=== PATIENT | female | born 1950 | race Caucasian/White ===

== ENCOUNTER → 2018-01-28 | Outpatient (CLI) | payer BC | END | disposition home or self-care (01) | LOC: RAD 12:37 | DX: I70.90 Unspecified atherosclerosis (principal); R05 Cough | CPT/HCPCS: 71046 ==

== ENCOUNTER → 2018-12-06 | Outpatient (CLI) | payer BC ==
[2018-12-06 10:37] LABS: ADD UMIC YES; UR ASCORBIC ACID NEGATIVE (NEGATIVE); UR BACTERIA FEW /HPF (NONE SEEN); UR BILIRUBIN (Dip) NEGATIVE (NEGATIVE); UR BLOOD (Dip) NEGATIVE (NEGATIVE); UR CLARITY CLEAR (CLEAR); UR COLOR STRAW (YELLOW); UR GLUCOSE (Dip) NEGATIVE (NEGATIVE); UR KETONES (Dip) NEGATIVE (NEGATIVE); UR LEUKOCYTE ESTERASE (Dip) NEGATIVE Leu/ul (NEGATIVE); UR NITRITE (Dip) NEGATIVE (NEGATIVE); UR RBC 0 /HPF (0-5); UR SPECIFIC GRAVITY (Dip) 1.008 (1.003-1.030); UR TOTAL PROTEIN (Dip) 2+ mg/dl (NEGATIVE); UR UROBILINOGEN (Dip) NEGATIVE (NEGATIVE); UR WBC 0 /HPF (0-5)
[2018-12-06 10:43] LABS: CREATINE KINASE 162 IU/L (23-200)
[2018-12-06 10:56] LABS: CK INDEX 1.5; CK-MB 2.41 ng/ml (0.0-2.4); TROPONIN-I < 0.012 ng/ml (0.000-0.120)
[2018-12-09 17:46] LABS: CREATININE, RANDOM URINE 34 mg/dL (20-275); MICROALBUMIN 116.1 mg/dL; MICROALBUMIN/CREATININE RATIO 3415 (<30)
== END | disposition home or self-care (01) ==
LOC: LAB 09:48
DX: I10 Essential (primary) hypertension (principal); E11.8 Type 2 diabetes mellitus with unspecified complications; E78.00 Pure hypercholesterolemia, unspecified; K27.9 Peptic ulcer, site unspecified, unspecified as acute or chronic, without hemorrhage or perforation; M79.10 Myalgia, unspecified site
CPT/HCPCS: 81001; 82043; 82550; 82553; 84484; 93005

== ENCOUNTER → 2018-12-31 | Outpatient (CLI) | payer BC ==
[2018-12-31 16:37] LABS: ANION GAP 5 (5-13); BLOOD UREA NITROGEN 31 mg/dl (7-20); CALCIUM 9.3 mg/dl (8.4-10.2); CARBON DIOXIDE 29 mmol/L (21-31); CHLORIDE 104 mmol/L (97-110); CREATININE 1.38 mg/dl (0.44-1.00); Estimated GFR 38 mL/min (>60); GLUCOSE 170 mg/dl (70-220); POTASSIUM 5.5 mmol/L (3.5-5.1); SODIUM 138 mmol/L (135-144)
== END | disposition home or self-care (01) ==
LOC: LAB 15:48
DX: N18.9 Chronic kidney disease, unspecified (principal)
CPT/HCPCS: 80048

== ENCOUNTER 2019-01-24 09:22 | Day surgery (SDC) | payer BC ==
[2019-01-24 10:10] LABS: ADD MAN DIFF? NO
[2019-01-24 10:16] LABS: WHITE BLOOD COUNT 7.2 10^3/ul (4.8-10.8)
[2019-01-24 10:16] LABS: BASOPHILS % 0.3 % (0.0-2.0); EOSINOPHILS # 0.1 10^3/ul (0.0-0.5); EOSINOPHILS % 1.4 % (0.0-7.0); HEMOGLOBIN 11.2 g/dl (12.0-16.0); LYMPHOCYTES # 1.5 10^3/ul (0.8-2.9); LYMPHOCYTES % 20.1 % (15.0-51.0); MEAN CORPUSCULAR HEMOGLOBIN 27.5 pg (29.0-33.0); MONOCYTE # 0.6 10^3/ul (0.3-0.9); MONOCYTES % 7.6 % (0.0-11.0); NEUTROPHIL # 5.1 10^3/ul (1.6-7.5); NEUTROPHILS % 70.3 % (39.0-77.0); PLATELET COUNT 236 10^3/UL (140-415); RED BLOOD COUNT 4.07 10^6/ul (4.20-5.40)
[2019-01-24 10:34] LABS: ANION GAP 9 (5-13); CALCIUM 9.7 mg/dl (8.4-10.2); CARBON DIOXIDE 27 mmol/L (21-31); CHLORIDE 102 mmol/L (97-110); GLUCOSE 155 mg/dl (70-220); INR 0.85; POTASSIUM 4.9 mmol/L (3.5-5.1); PROTIME 11.7 Sec (11.9-14.9); PT RATIO 0.9; SODIUM 138 mmol/L (135-144)
[2019-01-24 10:35] LABS: PARTIAL THROMBOPLASTIN TIME 32.7 Sec (23.0-35.0)
[2019-01-24 10:45] LABS: BLOOD UREA NITROGEN 34 mg/dl (7-20); CREATININE 1.49 mg/dl (0.44-1.00); Estimated GFR 35 mL/min (>60)
[2019-01-24 10:49] LABS: ADD UMIC YES; UR ASCORBIC ACID NEGATIVE (NEGATIVE); UR BILIRUBIN (Dip) NEGATIVE (NEGATIVE); UR BLOOD (Dip) NEGATIVE (NEGATIVE); UR CLARITY CLEAR (CLEAR); UR COLOR STRAW (YELLOW); UR GLUCOSE (Dip) 1+ mg/dL (NEGATIVE); UR KETONES (Dip) NEGATIVE (NEGATIVE); UR LEUKOCYTE ESTERASE (Dip) NEGATIVE Leu/ul (NEGATIVE); UR NITRITE (Dip) NEGATIVE (NEGATIVE); UR RBC 0 /HPF (0-5); UR TOTAL PROTEIN (Dip) 2+ mg/dl (NEGATIVE); UR UROBILINOGEN (Dip) NEGATIVE (NEGATIVE); UR WBC 1 /HPF (0-5)
[2019-01-24] MEDS ORDERED: MIDAZOLAM 1 MG/ML 2 ML INJ (11:27)
[2019-01-24] MEDS ORDERED: LIDOCAINE 1% (MDV) 20 ML INJ (11:27)
[2019-01-24] MEDS ORDERED: FENTAnyl 50 MCG/ML VIAL (11:27)
[2019-01-24] MEDS ORDERED: HEPARIN 1000 UNITS/ML 10 ML INJ (11:36)
[2019-01-24] MEDS ORDERED: SOD CHLORIDE 0.9% 500 ML (11:36)
[2019-01-24] MEDS ORDERED: CLOPIDOGREL 300 MG TAB (12:08)
[2019-01-24] MEDS ORDERED: CLOPIDOGREL 75 MG TAB PO (12:30)
[2019-01-24] MEDS: LACTATED RINGER'S 1,000 ML IV (13:41)
== END 2019-01-24 16:30 | disposition home or self-care (01) ==
LOC: SDS 09:22
DX: I70.301 Unspecified atherosclerosis of unspecified type of bypass graft(s) of the extremities, right leg (principal); I73.9 Peripheral vascular disease, unspecified; I10 Essential (primary) hypertension; E11.9 Type 2 diabetes mellitus without complications
CPT/HCPCS: 37224; 71045; 75630; 80048; 81001; 82962; 85025; 85610; 85730; 93005

== ENCOUNTER → 2019-05-02 | Outpatient (CLI) | payer BC ==
[2019-05-02 09:59] LABS: ADD MAN DIFF? NO
[2019-05-02 10:02] LABS: BASOPHILS % 0.4 % (0.0-2.0); EOSINOPHILS # 0.2 10^3/ul (0.0-0.5); EOSINOPHILS % 2.3 % (0.0-7.0); HEMATOCRIT 35.3 % (37.0-47.0); HEMOGLOBIN 11.5 g/dl (12.0-16.0); LYMPHOCYTES # 1.7 10^3/ul (0.8-2.9); LYMPHOCYTES % 23.4 % (15.0-51.0); MEAN CORPUSCULAR HEMOGLOBIN 27.4 pg (29.0-33.0); MEAN CORPUSCULAR HGB CONC 32.6 g/dl (32.0-37.0); MEAN CORPUSCULAR VOLUME 84.2 fl (82.0-101.0); MEAN PLATELET VOLUME 10.1 fl (7.4-10.4); MONOCYTE # 0.5 10^3/ul (0.3-0.9); MONOCYTES % 7.3 % (0.0-11.0); NEUTROPHIL # 4.8 10^3/ul (1.6-7.5); NEUTROPHILS % 66.2 % (39.0-77.0); PLATELET COUNT 270 10^3/UL (140-415); RED BLOOD COUNT 4.19 10^6/ul (4.20-5.40); RED CELL DISTRIBUTION WIDTH 13.9 % (11.5-14.5)
[2019-05-02 10:02] LABS: WHITE BLOOD COUNT 7.3 10^3/ul (4.8-10.8)
[2019-05-02 10:17] LABS: HEMOGLOBIN A1C 6.9 % (0-5.9)
[2019-05-02 10:19] LABS: ALANINE AMINOTRANSFERASE 13 IU/L (13-69); ALBUMIN 4.4 g/dl (3.3-4.9); ALBUMIN/GLOBULIN RATIO 1.41; ALKALINE PHOSPHATASE 103 IU/L (42-121); ANION GAP 13 (5-13); ASPARTATE AMINO TRANSFERASE 22 IU/L (15-46); BILIRUBIN,INDIRECT 0.3 mg/dl (0-1.1); BILIRUBIN,TOTAL 0.3 mg/dl (0.2-1.3); BLOOD UREA NITROGEN 28 mg/dl (7-20); CALCIUM 9.8 mg/dl (8.4-10.2); CARBON DIOXIDE 26 mmol/L (21-31); CHLORIDE 104 mmol/L (97-110); CHOL/HDL RATIO 3.8 RATIO; CHOLESTEROL 158 mg/dl (100-200); CREATININE 1.69 mg/dl (0.44-1.00); Estimated GFR 30 mL/min (>60); GLUCOSE 147 mg/dl (70-220); HDL CHOLESTEROL 41 mg/dl (35-98); LDL CHOLESTEROL,CALCULATED 67 mg/dl; POTASSIUM 5.6 mmol/L (3.5-5.1); SODIUM 143 mmol/L (135-144); TOTAL PROTEIN 7.5 g/dl (6.1-8.1); TRIGLYCERIDES 252 mg/dl (0-149)
== END | disposition home or self-care (01) ==
LOC: LAB 09:34
DX: I10 Essential (primary) hypertension (principal); E11.9 Type 2 diabetes mellitus without complications; E78.00 Pure hypercholesterolemia, unspecified
CPT/HCPCS: 80053; 80061; 83036; 84443; 85025

== ENCOUNTER → 2019-07-10 | Outpatient (CLI) | payer BC ==
[2019-07-10 10:03] LABS: ADD MAN DIFF? NO
[2019-07-10 10:12] LABS: WHITE BLOOD COUNT 7.7 10^3/ul (4.8-10.8)
[2019-07-10 10:12] LABS: BASOPHILS % 0.5 % (0.0-2.0); EOSINOPHILS # 0.2 10^3/ul (0.0-0.5); EOSINOPHILS % 2.2 % (0.0-7.0); HEMATOCRIT 32.6 % (37.0-47.0); HEMOGLOBIN 10.5 g/dl (12.0-16.0); LYMPHOCYTES % 25.5 % (15.0-51.0); MEAN CORPUSCULAR HEMOGLOBIN 28.1 pg (29.0-33.0); MEAN CORPUSCULAR HGB CONC 32.2 g/dl (32.0-37.0); MEAN CORPUSCULAR VOLUME 87.2 fl (82.0-101.0); MEAN PLATELET VOLUME 10.3 fl (7.4-10.4); MONOCYTE # 0.6 10^3/ul (0.3-0.9); MONOCYTES % 7.8 % (0.0-11.0); NEUTROPHIL # 4.9 10^3/ul (1.6-7.5); NEUTROPHILS % 63.6 % (39.0-77.0); PLATELET COUNT 242 10^3/UL (140-415); RED BLOOD COUNT 3.74 10^6/ul (4.20-5.40); RED CELL DISTRIBUTION WIDTH 14.6 % (11.5-14.5)
[2019-07-10 10:32] LABS: HEMOGLOBIN A1C 6.9 % (0-5.9)
[2019-07-10 10:32] LABS: INR 0.85; PROTIME 11.7 Sec (11.9-14.9); PT RATIO 0.9
[2019-07-10 10:33] LABS: PARTIAL THROMBOPLASTIN TIME 31.5 Sec (23.0-35.0)
[2019-07-10 10:34] LABS: ADD UMIC YES; ALANINE AMINOTRANSFERASE 28 IU/L (13-69); ALBUMIN 4.4 g/dl (3.3-4.9); ALBUMIN/GLOBULIN RATIO 1.41; ALKALINE PHOSPHATASE 95 IU/L (42-121); ANION GAP 9 (5-13); ASPARTATE AMINO TRANSFERASE 29 IU/L (15-46); BILIRUBIN,INDIRECT 0.3 mg/dl (0-1.1); BILIRUBIN,TOTAL 0.3 mg/dl (0.2-1.3); BLOOD UREA NITROGEN 32 mg/dl (7-20); CALCIUM 9.5 mg/dl (8.4-10.2); CARBON DIOXIDE 25 mmol/L (21-31); CHLORIDE 104 mmol/L (97-110); CREATININE 1.72 mg/dl (0.44-1.00); Estimated GFR 30 mL/min (>60); GLUCOSE 152 mg/dl (70-220); SODIUM 138 mmol/L (135-144); TOTAL PROTEIN 7.5 g/dl (6.1-8.1); UR ASCORBIC ACID NEGATIVE (NEGATIVE); UR BACTERIA FEW /HPF (NONE SEEN); UR BILIRUBIN (Dip) NEGATIVE (NEGATIVE); UR BLOOD (Dip) NEGATIVE (NEGATIVE); UR CLARITY CLEAR (CLEAR); UR COLOR STRAW (YELLOW); UR GLUCOSE (Dip) NEGATIVE (NEGATIVE); UR KETONES (Dip) NEGATIVE (NEGATIVE); UR LEUKOCYTE ESTERASE (Dip) NEGATIVE Leu/ul (NEGATIVE); UR NITRITE (Dip) NEGATIVE (NEGATIVE); UR RBC 0 /HPF (0-5); UR SPECIFIC GRAVITY (Dip) 1.007 (1.003-1.030); UR TOTAL PROTEIN (Dip) 3+ mg/dl (NEGATIVE); UR UROBILINOGEN (Dip) NEGATIVE (NEGATIVE); UR WBC 1 /HPF (0-5)
[2019-07-10 10:38] LABS: POTASSIUM 5.2 mmol/L (3.5-5.1)
== END | disposition home or self-care (01) ==
LOC: LAB 09:45
DX: Z01.818 Encounter for other preprocedural examination (principal); E11.22 Type 2 diabetes mellitus with diabetic chronic kidney disease; I12.9 Hypertensive chronic kidney disease with stage 1 through stage 4 chronic kidney disease, or unspecified chronic kidney disease; N18.9 Chronic kidney disease, unspecified; I73.9 Peripheral vascular disease, unspecified
CPT/HCPCS: 71046; 80053; 81001; 83036; 85025; 85610; 85730; 87086; 93005

== ENCOUNTER 2019-07-16 06:05 | Day surgery (SDC) | payer BC ==
[2019-07-16] MEDS: ACETAMINOPHEN 500 MG TAB PO (06:57)
[2019-07-16 07:26] LABS: ANION GAP 10 (5-13); CALCIUM 9.5 mg/dl (8.4-10.2); CARBON DIOXIDE 24 mmol/L (21-31); CHLORIDE 106 mmol/L (97-110); Estimated GFR 28 mL/min (>60); GLUCOSE 158 mg/dl (70-220); POTASSIUM 4.9 mmol/L (3.5-5.1); SODIUM 140 mmol/L (135-144)
[2019-07-16] MEDS ORDERED: ONDANSETRON 4 MG INJ IV (07:30)
[2019-07-16] MEDS ORDERED: LABETALOL HCL 20MG INJ IV (07:30)
[2019-07-16] MEDS ORDERED: ALBUTEROL 0.083% (NEB) 2.5 MG/3 ML AMP HHN (07:30)
[2019-07-16] MEDS ORDERED: KETOROLAC 15 MG INJ IV (07:30)
[2019-07-16] MEDS ORDERED: HYDROmorphONE 1 MG/5 ML IV SYRINGE IV ×3 (07:30)
[2019-07-16] MEDS ORDERED: DIPHENHYDRAMINE 50 MG INJ IV (07:30)
[2019-07-16] MEDS ORDERED: LEVALBUTEROL (NEB) 0.63 MG/3 ML AMP HHN (07:30)
[2019-07-16] MEDS ORDERED: morphine 2 MG INJ IV ×2 (07:30)
[2019-07-16] MEDS ORDERED: hydrALAzine 20 MG INJ IV (07:30)
[2019-07-16] MEDS ORDERED: FENTAnyl 50 MCG/ML VIAL IV ×2 (07:30)
[2019-07-16] MEDS ORDERED: OXYCODONE/ACETAMINOPHEN (5/325) TAB PO ×2 (07:30)
[2019-07-16] MEDS ORDERED: EPHEDrine 25 MG/5 ML SYG IV (07:30)
[2019-07-16] MEDS ORDERED: ATROPINE 1 MG/10 ML SYRINGE IV (07:30)
[2019-07-16 07:31] LABS: BLOOD UREA NITROGEN 34 mg/dl (7-20); CREATININE 1.78 mg/dl (0.44-1.00)
[2019-07-16] MEDS ORDERED: CEFAZOLIN 1 GM INJ (07:37)
[2019-07-16] MEDS ORDERED: LIDOCAINE 2% (SDV) 5 ML INJ (07:37)
[2019-07-16] MEDS ORDERED: PROPOFOL 40 ML (07:37)
[2019-07-16] MEDS ORDERED: MIDAZOLAM 1 MG/ML 2 ML INJ (07:38)
[2019-07-16] MEDS ORDERED: METOCLOPRAMIDE 10 MG INJ (07:38)
[2019-07-16] MEDS ORDERED: FENTAnyl 50 MCG/ML VIAL (07:38)
[2019-07-16] MEDS: POLYMYXIN/BACITRACIN 1L IRRIG (07:51)
[2019-07-16] MEDS: LIDOCAINE 1% (MPF) 30 ML INJ (07:51)
[2019-07-16] MEDS ORDERED: PHENYLephrine (100 MCG/ML) 10ML SYG (08:09)
[2019-07-16] MEDS ORDERED: CEFAZOLIN 2 GM/50 ML (PMX) 50 ML IVPB (10:30)
== END 2019-07-16 10:24 | disposition home or self-care (01) ==
LOC: SDS 06:05
DX: E11.621 Type 2 diabetes mellitus with foot ulcer (principal); Z79.82 Long term (current) use of aspirin; I73.9 Peripheral vascular disease, unspecified
CPT/HCPCS: 28825; 80048; 82962; 87070; 87102; 87116; 88304; 88311